=== PATIENT | female | born 1990 | race Caucasian/White ===

== ENCOUNTER → 2021-08-04 | Day surgery (SDC) | payer BC ==
[~2021-08-04] VITALS: Ht 162.6 cm; Wt 90.0 kg
[~2021-08-04] MED LIST: DEXAMETHASONE 4MG/ML 1ML VIAL ONE; DOBUTAMINE 250MG PREMIX 250 ML IV ONE; FENTANYL CITRATE/PF 50MCG/ML 2ML VIAL ONE; FENTANYL CITRATE/PF 50MCG/ML 5ML VIAL ONE; LIDOCAINE HCL/PF 1% 10 MG/ML 5ML VIAL ONE; MIDAZOLAM HCL 2 MG/2 ML VIAL ONE; MIDAZOLAM HCL 5 MG/5 ML VIAL ONE; ONDANSETRON HCL 4MG/2ML INJ IV PRN; PROP120C2 MT; PROP225C8 PO; PROPOFOL 10MG/ML 100ML 0 ML IV ONE; PROPOFOL 200MG/20ML VIAL IV ONE; ROCURONIUM BROMIDE 10MG/ML VIAL 5ML IV ONE; SODIUM CHLORIDE 0.9% 1,000 ML IV SCH
[2021-08-04 07:53] LABS: HEMATOCRIT 36.6 % (36.0-48.0); HEMOGLOBIN 12.2 g/dL (12.0-16.0); MEAN CORPUSCULAR HEMOGLOBIN 28.7 pg (28.0-32.0); PLATELET 300 x1000/uL (130-400); RED BLOOD CELL COUNT 4.25 mill/uL (4.2-5.4); RED CELL DISTRIBUTION WIDTH 13.8 % (11.6-14.6)
[2021-08-04 07:55] LABS: CHLORIDE 110 mEq/L (98-107)
[2021-08-04 07:59] LABS: PARTIAL THROMBOPLASTIN TIME 25.3 sec (23.4-31.0); PROTHROMBIN TIME 10.4 sec (9.6-11.0)
== END | disposition home or self-care (01) ==
LOC: CCL 06:06
PROVIDERS: ATTEND Internal Medicine Clinical Cardiac Electrophysiology
DX: I49.3 Ventricular premature depolarization (principal); Z53.8 Procedure and treatment not carried out for other reasons; R00.2 Palpitations; Z82.49 Family history of ischemic heart disease and other diseases of the circulatory system; Z79.899 Other long term (current) drug therapy; Z98.890 Other specified postprocedural states
CPT/HCPCS: 36415; 80048; 85027; 85610; 85730; 93005; J1100; J1250; J2250; J2704; J3010; J3490